=== PATIENT | male | born 1965 | race Caucasian/White ===

== ENCOUNTER 2020-07-07 10:37 | Inpatient (IN) | payer OTHER, BC ==
[~2020-07-07] VITALS: Ht 185.4 cm; Wt 170.5 kg
[2020-07-07] MEDS ORDERED: TRAZODONE HCL100 MG PO (10:43)
[2020-07-07] MEDS ORDERED: ELIQUIS5 MG PO (10:43)
[2020-07-07] MEDS ORDERED: LIPITOR40 MG PO (10:43)
[2020-07-07] MEDS ORDERED: HYDROCODON-ACE1 EA10 PO (12:26)
[2020-07-07 12:53] LABS: BASOPHILS 0.3 % (0-2); EOSINOPHILS 0.9 % (0-7); HEMATOCRIT 41.2 % (42.0-54.0); HEMOGLOBIN 13.1 g/dL (13.5-17.5); IMMATURE GRANULOCYTES 0.2 % (0-5); LYMPHOCYTES 8.9 % (15-50); MCH 26.4 pg (26.0-34.0); MCHC 31.8 g/dL (31.0-37.0); MCV 82.9 fL (80.0-100.0); MEAN PLATELET VOLUME 10.1 fL (7.4-10.4); MONOCYTES 5.2 % (2-11); NEUTROPHILS 84.5 % (40-80); PLATELET COUNT 298 10x3/uL (130-400); RBC 4.97 10x6/uL (4.20-6.10); RDW 14.6 % (11.5-14.5); WBC 10.1 10x3/uL (4.8-10.8)
[2020-07-07 13:16] LABS: CALCIUM 8.7 mg/dL (8.5-10.1); CARBON DIOXIDE 25.5 mmol/L (21.0-32.0); CREATININE - SERUM 1.3 mg/dL (0.6-1.3); POTASSIUM - SERUM 4.5 mmol/L (3.5-5.1)
--- NOTE | 2020-07-07 13:17 | NUR ---
EKG ORDERED BY DR. MORATAYA DUE TO PT C/O CHEST PRESSURE. PATIENT STATES PAIN MAY BE ASSOCIATED WITH INDIGESTION. EKG SHOWS NORMAL.
--- NOTE | 2020-07-07 13:27 | NUR ---
REGULAR DIET TRAY GIVEN.
[2020-07-07 13:32] LABS: ALBUMIN 3.1 g/dL (3.4-5.0); BILIRUBIN - TOTAL 0.38 mg/dL (0.2-1.3); PROTEIN - SERUM 6.7 g/dL (6.4-8.2)
[2020-07-07 13:45] LABS: APTT 30.9 SECONDS (22.8-39.4); INR 1.25 (0.85-1.17); PROTIME 14.6 SECONDS (11.6-15.0)
--- NOTE | 2020-07-07 17:30 | NUR ---
PATIENT C/O UPPER EPIGASTRIC PAIN "LIKE A GAS BUBBLE". PAIN IN ANKLE AT 2/10.
--- NOTE | 2020-07-07 18:00 | NUR ---
EPIGASTRIC PAIN RESOLVED. RESTING COMFORTABLE.
[2020-07-07 18:30] VITALS: BP 140/62
--- NOTE | 2020-07-07 18:30 | NUR ---
REPORT CALLED TO [facility].
[2020-07-07 20:41] VITALS: Ht 185.4 cm; Wt 170.5 kg
[2020-07-08 05:08] LABS: BASOPHILS 0.4 % (0-2); EOSINOPHILS 2.1 % (0-7); HEMATOCRIT 36.8 % (42.0-54.0); HEMOGLOBIN 11.6 g/dL (13.5-17.5); IMMATURE GRANULOCYTES 0.2 % (0-5); LYMPHOCYTE ABS# 0.78 10x3/uL (1.32-3.57); LYMPHOCYTES 16.7 % (15-50); MCH 26.2 pg (26.0-34.0); MCHC 31.5 g/dL (31.0-37.0); MCV 83.1 fL (80.0-100.0); MEAN PLATELET VOLUME 10.7 fL (7.4-10.4); MONOCYTES 9.2 % (2-11); NEUTROPHIL ABS# 3.32 10x3/uL (1.78-5.38); NEUTROPHILS 71.4 % (40-80); PLATELET COUNT 264 10x3/uL (130-400); RBC 4.43 10x6/uL (4.20-6.10); RDW 14.6 % (11.5-14.5)
[2020-07-08 05:09] LABS: WBC 4.7 10x3/uL (4.8-10.8)
--- NOTE | 2020-07-08 05:29 | NUR ---
Pt has been in bed resting and requested pain meds X2, which have been effective. Pt did not take Trazadone last night as the Morphine was effective for sleep as well very soon after admin. Continues resting in bed with CPAP. Unable to wear SCD's so Plaxy will be applied to Lt foot.
[2020-07-08 05:37] LABS: ALBUMIN 2.6 g/dL (3.4-5.0); ANION GAP 12.8 mmol/L (8-16); BILIRUBIN - TOTAL 1.15 mg/dL (0.2-1.3); CALCIUM 8.1 mg/dL (8.5-10.1); CARBON DIOXIDE 24.3 mmol/L (21.0-32.0); CREATININE - SERUM 1.3 mg/dL (0.6-1.3); PHOSPHOROUS 4.1 mg/dL (2.5-4.9); POTASSIUM - SERUM 4.1 mmol/L (3.5-5.1); PROTEIN - SERUM 5.9 g/dL (6.4-8.2)
[2020-07-08 08:07] VITALS: BP 122/70
--- NOTE | 2020-07-08 09:18 | NUR ---
DANIEL CALLED IN LAB REGARDING REDRAW FOR CMP AND VERBALIZED UNDERSTANDING.
[2020-07-08 09:46] LABS: INR 1.26 (0.85-1.17); PROTIME 14.6 SECONDS (11.6-15.0)
[2020-07-08 09:54] LABS: CALCIUM 7.9 mg/dL (8.5-10.1); CREATININE - SERUM 1.4 mg/dL (0.6-1.3)
[2020-07-08 10:00] LABS: ALBUMIN 2.6 g/dL (3.4-5.0); BILIRUBIN - TOTAL 1.15 mg/dL (0.2-1.3)
[2020-07-08 12:00] VITALS: BP 120/45
[2020-07-08 17:29] VITALS: BP 123/56
[2020-07-08 20:00] VITALS: BP 123/63
[2020-07-09] VITALS: BP 118/67
[2020-07-09 04:00] VITALS: BP 112/57
[2020-07-09 07:25] LABS: BASOPHILS 0.6 % (0-2); EOSINOPHILS 3.4 % (0-7); HEMATOCRIT 36.7 % (42.0-54.0); HEMOGLOBIN 11.5 g/dL (13.5-17.5); IMMATURE GRANULOCYTES 0.2 % (0-5); MCH 26.1 pg (26.0-34.0); MCHC 31.3 g/dL (31.0-37.0); MCV 83.2 fL (80.0-100.0); MEAN PLATELET VOLUME 10.9 fL (7.4-10.4); MONOCYTES 10.3 % (2-11); NEUTROPHILS 66.5 % (40-80); PLATELET COUNT 255 10x3/uL (130-400); RBC 4.41 10x6/uL (4.20-6.10); RDW 14.8 % (11.5-14.5); WBC 5.3 10x3/uL (4.8-10.8)
[2020-07-09 08:12] LABS: ALBUMIN 2.5 g/dL (3.4-5.0); ANION GAP 13.1 mmol/L (8-16); BILIRUBIN - TOTAL 1.34 mg/dL (0.2-1.3); CALCIUM 8.3 mg/dL (8.5-10.1); CARBON DIOXIDE 24.7 mmol/L (21.0-32.0); CREATININE - SERUM 1.2 mg/dL (0.6-1.3); MAGNESIUM - SERUM 2.2 mg/dL (1.8-2.4); PHOSPHOROUS 3.8 mg/dL (2.5-4.9); POTASSIUM - SERUM 3.8 mmol/L (3.5-5.1); PROTEIN - SERUM 5.9 g/dL (6.4-8.2)
--- NOTE | 2020-07-09 09:00 | NUR ---
DRESSING INTACT TO RLE WITH CAP REFILL <3 SEC. PLEXI PULSE INTACT TO LLE. IV TO LEFT A/C INFILTRATED AND RESTARTED WITH 22G TO LEFT FOREARM. ENCOURAGED USE OF INCENTIVE SPIROMOETRY AND DEMONSTRATES. ENCOURAGED TO USE CALL LIGHT FOR ASSSIT.
[2020-07-09 09:31] VITALS: BP 115/64
[2020-07-09 12:00] VITALS: BP 144/72
[2020-07-09 16:00] VITALS: BP 118/65
[2020-07-09 20:00] VITALS: BP 121/68
[2020-07-10] VITALS (9 sets, daily range): BP systolic 105–136; BP diastolic 49–81
[2020-07-10 06:07] LABS: BASOPHILS 0.8 % (0-2); EOSINOPHILS 3.4 % (0-7); HEMATOCRIT 36.3 % (42.0-54.0); HEMOGLOBIN 11.5 g/dL (13.5-17.5); IMMATURE GRANULOCYTES 0.2 % (0-5); LYMPHOCYTE ABS# 1.25 10x3/uL (1.32-3.57); MCH 26.3 pg (26.0-34.0); MCHC 31.7 g/dL (31.0-37.0); MCV 83.1 fL (80.0-100.0); MEAN PLATELET VOLUME 10.8 fL (7.4-10.4); MONOCYTES 9.6 % (2-11); NEUTROPHIL ABS# 4.14 10x3/uL (1.78-5.38); PLATELET COUNT 265 10x3/uL (130-400); RBC 4.37 10x6/uL (4.20-6.10); RDW 14.7 % (11.5-14.5); WBC 6.3 10x3/uL (4.8-10.8)
[2020-07-10 06:34] LABS: ALBUMIN 2.4 g/dL (3.4-5.0); ANION GAP 11.3 mmol/L (8-16); BILIRUBIN - TOTAL 0.6 mg/dL (0.2-1.3); CALCIUM 8.2 mg/dL (8.5-10.1); CARBON DIOXIDE 26.6 mmol/L (21.0-32.0); CREATININE - SERUM 1.2 mg/dL (0.6-1.3); MAGNESIUM - SERUM 2.1 mg/dL (1.8-2.4); PHOSPHOROUS 3.9 mg/dL (2.5-4.9); POTASSIUM - SERUM 3.9 mmol/L (3.5-5.1); PROTEIN - SERUM 5.9 g/dL (6.4-8.2)
[2020-07-10 11:33] LABS: BILIRUBIN NEGATIVE (NEGATIVE); KETONE NEGATIVE (NEGATIVE); NITRITE NEGATIVE (NEGATIVE)
[2020-07-10 11:34] LABS: BACTERIA FEW HPF (NONE SEEN); WHITE CELLS - URINE 2 HPF (0-1)
--- NOTE | 2020-07-10 15:40 | NUR ---
PATIENT PREMEDICATED FOR SURGERY AND LEFT WITH SURGICAL STAFF. STABLE AT TIME OF DEPARTURE. IMOBILIZER DRESSING INTACCT TO RLE.
--- NOTE | 2020-07-10 19:00 | NUR ---
REPORT GIVEN BY ABRIL STACK
--- NOTE | 2020-07-10 19:00 | NUR ---
PT WAS BROUGHT BACK FROM HIS ROOM FROM SURGERY. HE IS AWAKE AND ALERT WITH NO PAIN. DOROTHY WRAP TO LEFT FOOT WITH NO DRAINAGE NOTED. IV TO LEFT WRIST. PLEXI PULSE IN PLACE. PT CAN WIGGLE HIS TOES. I EXPLAINED THAT I WOULD BE BACK AGAIN TO SEE ABOUT HIM.
--- NOTE | 2020-07-10 20:00 | NUR ---
PT ASKED TO BE TAKEN OFF THE BEDPAN. HE HAD A LARGE BROWN VERY SOFT STOOL AND HE STATES THIS IS THE FOURTH OF THE DAY. HE WAS CLEANED UP WELL. HE STATES IF HE HAD ANY MEDICATION FOR HIS BOWELS THAT HE DID NOT WANT THEM. I SAID OK. HE IS STILL FEELING NO PAIN. I ASKED HIM TO LET ME KNOW WHEN HE STARTED HURTING SO HE DIDN'T GET BEHIND ON HIS PAIN.
--- NOTE | 2020-07-10 21:00 | NUR ---
PT IS STILL AWAKE AND ALERT. NO C/O AT THIS TIME. ASSESSMENT COMPLETED. IV IS INFUSING AT 50 ML/HR. IV ANTIBIOTEC STARTED. SKIN W/D.
--- NOTE | 2020-07-10 22:00 | NUR ---
ICE PACK APPLIED TO PT ANKLE.
[2020-07-11] VITALS (10 sets, daily range): BP systolic 94–124; BP diastolic 49–76
[2020-07-11 06:38] LABS: BASOPHILS 0.1 % (0-2); EOSINOPHILS 0 % (0-7); HEMATOCRIT 35.8 % (42.0-54.0); HEMOGLOBIN 11.4 g/dL (13.5-17.5); IMMATURE GRANULOCYTES 0.1 % (0-5); LYMPHOCYTE ABS# 0.66 10x3/uL (1.32-3.57); LYMPHOCYTES 7.1 % (15-50); MCH 26.4 pg (26.0-34.0); MCHC 31.8 g/dL (31.0-37.0); MCV 82.9 fL (80.0-100.0); MEAN PLATELET VOLUME 11.3 fL (7.4-10.4); MONOCYTES 5.3 % (2-11); NEUTROPHIL ABS# 8.12 10x3/uL (1.78-5.38); NEUTROPHILS 87.4 % (40-80); PLATELET COUNT 279 10x3/uL (130-400); RBC 4.32 10x6/uL (4.20-6.10); RDW 14.6 % (11.5-14.5)
[2020-07-11 06:43] LABS: WBC 9.3 10x3/uL (4.8-10.8)
--- NOTE | 2020-07-11 06:50 | OP ---
PATIENT NAME: MATIAS CHAIDEZ MEDICAL RECORD: [id number] :61 LOCATION:[id number] ADMISSION DATE:07/07/20 SURGEON: MATIAS LOMELI DO DATE OF OPERATION: 07/10/2020 PROCEDURE PERFORMED: Right ankle open reduction internal fixation. PREOPERATIVE DIAGNOSIS: Right ankle fracture. POSTOPERATIVE DIAGNOSIS: Right ankle fracture. INDICATIONS: Mr. Chaidez is a 54-year-old male who slipped at work while going down a ramp at a person's house and fractured his right ankle. He was brought to the ER. He was seen to have a right ankle fracture with lateral subluxation and need of surgery. This was on Friday, but is on and was held. He was put on Lovenox and he also had right knee pain, ended up getting an MRI showing a partial tear of his ACL lateral meniscal tear and tricompartmental arthritis, but the ankle course took precedence. He also had a posterior margin medial tibial plateau fracture with no displacement in the fibular head as well and the medial meniscus tear as well. I spoke to him about this and told me fix his ankle and then address the knee after that was healed. He was okay with that. He is aware of the risk of this procedure including infection, bleeding, damage to nerves or vessels, need for further surgery, continued pain, posttraumatic arthritis, malunion, nonunion, need for further surgery, blood clots, and even , failure of implants and he signed the consent. SURGEON: Matias Lomeli DO DESCRIPTION OF PROCEDURE: The patient was taken to the operative suite, laid in the supine position after given a block by anesthesia in preoperative area, given 3 grams Ancef preoperatively. The patient was sedated and LMA was placed. The right lower extremity was then prepped and draped in sterile fashion. Timeout was performed, everyone was in agreement of the correct side, site, patient, and procedure. I then began by making an incision over the lateral malleolus. I made careful dissection down to the fibula, made a reduction. I then put the plate on and it got lateral. Once I have had the plate on it was slightly anterior on the shaft. I then removed the shaft screws and made a reduction and put the plate a little posterior. I then put the screws back into the shaft 4 of them and tightened them down holding the fibula very well. His ankle medial clear space was still quite widened and the talus was subluxed more laterally. I then attempted a reduction and it did not reduce very well, so I opened up the medial aspect of the ankle at the small incision and took a freer and cleared out any medial clear space, maybe had the deltoid ligament flipped up in and cleared it out and reclamped and reduced the talus under the tibia as best I could. I then put two ZipTights across through the plate in the lateral side and cinched them down and then removed the clamp, stressed the ankle. He did have some slight medial clear space widening, but there is a talus lined up on to tibia and was not subluxed laterally. I then irrigated and Nicholas Beavers, certified surgical temporary administrative assistant as well as Chrissy Land, certified surgical nurse, closed the wounds in the medial side with 2-0 Vicryl in interrupted fashion and the lateral side with 2-0 Vicryl in interrupted fashion. Placed a ZipLine on the outside on the lateral side. Steri-Strips on the medial side. He was then dressed with Adaptic, 4 x 4s, ABDs on the heel and on the lateral ankle and placed cast padding and a 4 x 30 splint posteriorly. He was then secured with an Praful wrap. He was then awakened and taken to recovery in stable OPERATIVE REPORT [id number] MATIAS CHAIDEZ condition. Blood loss approximately 100 mL. COMPLICATIONS: None. TRANSINT:[id number] Voice Confirmation ID: [id number] DOCUMENT ID: [id number] MATIAS LOMELI DO at 0650 CC: [id number] DICTATION DATE: 07/10/20 183 DRILL PRESS SET UP OPERATOR: 07/11/20 0247 ADM IN [facility] [address] [place] [address]
[2020-07-11 06:55] LABS: ALBUMIN 2.4 g/dL (3.4-5.0); BILIRUBIN - TOTAL 0.38 mg/dL (0.2-1.3); CALCIUM 8.3 mg/dL (8.5-10.1); CARBON DIOXIDE 23.9 mmol/L (21.0-32.0); CREATININE - SERUM 1.2 mg/dL (0.6-1.3); MAGNESIUM - SERUM 2.2 mg/dL (1.8-2.4); PHOSPHOROUS 3.9 mg/dL (2.5-4.9); PROTEIN - SERUM 6.2 g/dL (6.4-8.2)
[2020-07-11 06:56] LABS: ANION GAP 14.6 mmol/L (8-16); POTASSIUM - SERUM 4.5 mmol/L (3.5-5.1)
[2020-07-11 11:11] LABS: HEPATITIS C ANTIBODY <0.1 S/CO RAT (0.0-0.9)
[2020-07-11] MEDS ORDERED: VISTARIL50 MG PO (13:23)
[2020-07-11] MEDS ORDERED: PERCOCET 10-321 EAC1 PO (13:23)
[2020-07-12] VITALS: BP 115/65
[2020-07-12 04:00] VITALS: BP 107/68
--- NOTE | 2020-07-12 06:03 | NUR ---
ASSUMED CARE OF PT AFTER REPORT/ROUNDS LAST EVENING. PT REMAINS A&OX4. PT HAS RESTED WELL WITH ONLY ONE C/O PAIN WITH PRN PAIN MED EFFECTIVE. RLE CMS REMAINS INTACT. CONTINUING TO APPLY ICE WHILE AWAKE. PT IN BED RESTING AT THIS TIME.
[2020-07-12 06:42] LABS: BASOPHILS 0.3 % (0-2); EOSINOPHILS 2.1 % (0-7); HEMATOCRIT 34.5 % (42.0-54.0); HEMOGLOBIN 10.6 g/dL (13.5-17.5); IMMATURE GRANULOCYTES 0.3 % (0-5); LYMPHOCYTE ABS# 1.34 10x3/uL (1.32-3.57); LYMPHOCYTES 18.4 % (15-50); MCH 25.9 pg (26.0-34.0); MCHC 30.7 g/dL (31.0-37.0); MCV 84.4 fL (80.0-100.0); MEAN PLATELET VOLUME 11.1 fL (7.4-10.4); NEUTROPHIL ABS# 5.18 10x3/uL (1.78-5.38); NEUTROPHILS 70.9 % (40-80); PLATELET COUNT 264 10x3/uL (130-400); RBC 4.09 10x6/uL (4.20-6.10); RDW 14.9 % (11.5-14.5); WBC 7.3 10x3/uL (4.8-10.8)
[2020-07-12 07:20] LABS: ALBUMIN 2.3 g/dL (3.4-5.0); BILIRUBIN - TOTAL 0.37 mg/dL (0.2-1.3); CALCIUM 7.9 mg/dL (8.5-10.1); CARBON DIOXIDE 24.8 mmol/L (21.0-32.0); CREATININE - SERUM 1.3 mg/dL (0.6-1.3); MAGNESIUM - SERUM 2.1 mg/dL (1.8-2.4); PHOSPHOROUS 3.8 mg/dL (2.5-4.9); POTASSIUM - SERUM 3.8 mmol/L (3.5-5.1)
[2020-07-12 08:00] VITALS: BP 131/71
--- NOTE | 2020-07-12 08:30 | NUR ---
PATIENT IN BED WITH IV INTACT. NO COMPLAINTS OR SIGNS OF DISTRESS. RLE FLOATING ON PILLOW WITH DRESSING CLEAN, DRY, AND INTACT. CALL LKIGHT WITHIN REACH.
--- NOTE | 2020-07-12 17:18 | MORECARE ---
CASE MANAGEMENT DISCHARGE SUMMARY PATIENT: KIRSTIE GUTIERREZ UNIT: [id number] ADM DATE: 07/07/20 AGE: 54 : 63 SEX: M ROOM/BED: D.2210 AUTHOR: ALEA HERRERA PHYSICIAN: REFERRING PHYSICIAN: TITUS OH MD DATE OF SERVICE: 07/12/20 Case Management Discharge Planning Summary DCP REVIEW SUMMARY ANTICIPATED D/C DATE: EXPECTED LOS : CASE STATUS: DCP Initiated INITIAL REVIEW: 07/07/2020 INITIAL REVIEWER: Lashawn Ojead FINAL DISCHARGE DISPOSITION: : FINAL REVIEWER: FINAL REVIEW DATE: DCP Focus Questions & Answers QUESTION: ANSWER : PATIENT: KIRSTIE GUTIERREZ ENCOUNTER: [id number] MEDICAL RECORD#: [id number] ADMISSION DATE: 07/07/2020 DISCHARGE DATE: ATTENDING MD: TITUS BASSETT : AGE: 54 MARITAL STATUS: D DC PLAN ID: [id number] FACILITY: [facility] PRINTED ON: 07/12/20 17:18 CT All edits/amendments must be made on the electronic document DICTATION DATE: 07/12/201717 PRODUCT TECHNOLOGY SCIENTIST: DM 07/12/201717 RPT#: [id number] DC DATE: STATUS: ADM IN [place] [address] [place] [address] END OF REPORT
--- NOTE | 2020-07-12 17:41 | MORECARE ---
CASE MANAGEMENT DISCHARGE SUMMARY PATIENT: KIRSTIE GUTIERREZ UNIT: [id number] ADM DATE: 07/07/20 AGE: 54 : 63 SEX: M ROOM/BED: D.2210 AUTHOR: ALEA HERRERA PHYSICIAN: REFERRING PHYSICIAN: TITUS OH MD DATE OF SERVICE: 07/12/20 Case Management Discharge Planning Summary COMMENTS ENTERED DATE: 07/12/20 17:13 CT COMMENT TYPE: Discharge Planning REVIEWER: Lashawn Ojeda CM met with patient to discuss discharge planning needs. 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 He planned on going home with services but after OT evaluated him and said that they thought that the safest discharge plan is rehab for transfer and strength training. I spoke with Yamile the patient's [employer]'s comp fire claims adjuster and she stated that they would approve rehab. I gave Maureen with inpatient rehab [facility]'s number for her to get auth. When the patient is able to go home he will need a knee walker, shower chair, and BSC. I have already started the process to get these items from [employer]. [facility] has also approved these items. The patient states that he has a walker at home and there is a ramp at his home. Dr Nicholas Osborne is his PCP and he uses [facility] the [address] for his medications. His 15 year old daughter lives with him. His sister will be his cdl dedicated truck driver home when he is ready. The plan will be to dc home at inpatient rehab today and then home. Fernie who is the CM for [employer] called and I explained all the above to her, I will fax clinicals to her also . She knows about the DME that was ordered with [employer]. [employer] CLAIM # [id number] [facility] [phone] fax# [phone] FERNIE ( PAID SEARCH ANALYST FOR [employer] ) FAX # [phone] DCP REVIEW SUMMARY ANTICIPATED D/C DATE: EXPECTED LOS : CASE STATUS: DCP Initiated INITIAL REVIEW: 07/07/2020 INITIAL REVIEWER: Lashawn Ojeda FINAL DISCHARGE DISPOSITION: : FINAL REVIEWER: FINAL REVIEW DATE: MNP Focus Questions & Answers QUESTION: ANSWER : PATIENT: KIRSTIE GUTIERREZ ENCOUNTER: [id number] MEDICAL RECORD#: [id number] ADMISSION DATE: 07/07/2020 DISCHARGE DATE: ATTENDING MD: TITUS BASSETT : AGE: 54 MARITAL STATUS: D DC PLAN ID: [id number] FACILITY: [facility] PRINTED ON: 07/12/20 17:41 CT All edits/amendments must be made on the electronic document DICTATION DATE: 07/12/201739 FRICTION PAINT MACHINE TENDER: TOMAS 07/12/201739 RPT#: [id number] DC DATE: STATUS: ADM IN [facility] [address] [place] [address] END OF REPORT
--- NOTE | 2020-07-12 18:50 | NUR ---
PATIENT IN BED WITH IV INTACT. NO COMPLAINTS OR SIGNS OF DISTRESS. PLEXI PULSES ON. CALL LIGHT WITHINR EACH. WAITING FOR A BED IN REHAB.
--- NOTE | 2020-07-12 20:39 | NUR ---
REHAB PRESCREEN ORDER RECEIVED AT 1638. WE HAVE AUTHORIZATION FROM [facility] TO BRING THE PATIENT. WE WORKED TO COMPLETE THE ELECTRONIC SCREEN, AND HAVE BEEN WAITING OVER AN HOUR FOR FINAL APPROVAL. WE HAVE DONE WHAT WE CAN AND CALL THE FLOOR AND COMMUNITY SERVICE MANAGER TO STATE WE WOULD HAVE TO BRING IN AM. WE APOLOGIZE FOR THE DELAY. SHARMIN BECKER RN CLINICAL [facility], INPATIENT REHAB.
--- NOTE | 2020-07-12 22:14 | NUR ---
REPAIR SERVICER ASSISTED PT TO INPT REHAB, VIA BED. REMOVED PIV FROM RIGHT FOREARM, CATH INTACT, NO REDNESS OR SWELLING.
--- NOTE | 2020-07-12 22:19 | MORECARE ---
CASE MANAGEMENT DISCHARGE SUMMARY PATIENT: KIRSTIE GUTIERREZ UNIT: [id number] ADM DATE: 07/07/20 AGE: 54 : 61 SEX: M ROOM/BED: D.2210 AUTHOR: ALEA HERRERA PHYSICIAN: REFERRING PHYSICIAN: TITUS OH MD DATE OF SERVICE: 07/12/20 Case Management Discharge Planning Summary COMMENTS ENTERED DATE: 07/12/20 17:13 CT COMMENT TYPE: Discharge Planning REVIEWER: Lashawn Ojeda CM met with patient to discuss discharge planning needs. 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 He planned on going home with services but after OT evaluated him and said that they thought that the safest discharge plan is rehab for transfer and strength training. I spoke with Yamile the patient's [employer] comp crop insurance claims adjuster and she stated that they would approve rehab. I gave Maureen with inpatient rehab [facility]'s number for her to get auth. When the patient is able to go home he will need a knee walker, shower chair, and BSC. I have already started the process to get these items from [employer]. [facility] has also approved these items. The patient states that he has a walker at home and there is a ramp at his home. Dr Nicholas Osborne is his PCP and he uses [facility] the [place] for his medications. His 15 year old daughter lives with him. His sister will be his line haul truck driver home when he is ready. The plan will be to dc home at inpatient rehab today and then home. Fernie who is the CM for [employer] called and I explained all the above to her, I will fax clinicals to her also . She knows about the DME that was ordered with [employer]. [employer] CLAIM # [id number] [facility] [phone] fax# [phone] FERNIE ( PHYSICIAN'S AIDE FOR [employer] ) FAX # [phone] DCP REVIEW SUMMARY ANTICIPATED D/C DATE: EXPECTED LOS : CASE STATUS: DCP Initiated INITIAL REVIEW: 07/07/2020 INITIAL REVIEWER: Lashawn Ojeda FINAL DISCHARGE DISPOSITION: : FINAL REVIEWER: FINAL REVIEW DATE: NVP Focus Questions & Answers QUESTION: ANSWER : PATIENT: KIRSTIE GUTIERREZ ENCOUNTER: [id number] MEDICAL RECORD#: [id number] ADMISSION DATE: 07/07/2020 DISCHARGE DATE: 07/12/2020 ATTENDING MD: TITUS BASSETT : AGE: 54 MARITAL STATUS: D DC PLAN ID: [id number] FACILITY: [facility] PRINTED ON: 07/12/20 22:18 CT All edits/amendments must be made on the electronic document DICTATION DATE: 07/12/202217 PLASMA SPECIALIST: TOMAS 07/12/202217 RPT#: [id number] DC DATE:07/12/20 STATUS: DIS IN [facility] [address] [place] [address] END OF REPORT
== END 2020-07-12 22:15 | DRG 493 ==
LOC: D.ER 10:37 → D.MS 13:33
PROVIDERS: Family Medicine; Orthopaedic Surgery; Student in an Organized Health Care Education/Training Program; ADMIT Emergency Medicine; ATTEND Emergency Medicine
PROC: 0QSJ04Z Reposition Right Fibula with Internal Fixation Device, Open Approach (ICD-10-PCS; principal; 2020-07-10 12:30)
DX: S82.61XA Displaced fracture of lateral malleolus of right fibula, initial encounter for closed fracture (principal); S82.141A Displaced bicondylar fracture of right tibia, initial encounter for closed fracture; W19.XXXA Unspecified fall, initial encounter; R74.01 Elevation of levels of liver transaminase levels; J45.909 Unspecified asthma, uncomplicated; E78.5 Hyperlipidemia, unspecified; Z86.711 Personal history of pulmonary embolism; Z79.01 Long term (current) use of anticoagulants; S83.271A Complex tear of lateral meniscus, current injury, right knee, initial encounter; S83.511A Sprain of anterior cruciate ligament of right knee, initial encounter; S83.411A Sprain of medial collateral ligament of right knee, initial encounter; M19.09 Primary osteoarthritis, other specified site

== ENCOUNTER 2020-07-12 22:14 | Inpatient (IN) | payer BC ==
[~2020-07-12] VITALS: Ht 185.4 cm; Wt 171.5 kg
[~2020-07-12 22:14] MED LIST: ELIQUIS5 MG PO; HYDROCODON-ACE1 EA10 PO; LIPITOR40 MG PO; PERCOCET 10-321 EAC1 PO; TRAZODONE HCL100 MG PO; VISTARIL50 MG PO
[2020-07-12 22:45] VITALS: BP 100/65; BMI 49.9
--- NOTE | 2020-07-12 23:30 | NUR ---
PT IN BED, NO IMMEDIATE NEEDS NOTED, FLUIDS/CL WITHIN REACH, PRECAUTIONS IN PLACE
[2020-07-13 07:41] LABS: ALBUMIN 2.4 g/dL (3.4-5.0); ANION GAP 11.9 mmol/L (8-16); BILIRUBIN - TOTAL 0.4 mg/dL (0.2-1.3); CALCIUM 8.2 mg/dL (8.5-10.1); CARBON DIOXIDE 27.4 mmol/L (21.0-32.0); CREATININE - SERUM 1.3 mg/dL (0.6-1.3); POTASSIUM - SERUM 4.3 mmol/L (3.5-5.1); PROTEIN - SERUM 5.7 g/dL (6.4-8.2)
[2020-07-13 08:14] VITALS: BP 125/54
--- NOTE | 2020-07-13 09:15 | NUR ---
HE IS WORKING WITH [employer]. HE HAS A DRESSING INTACT TO HIS RIGHT ANKLE. HE IS USING THE WHEELCHAIR TO GO TO THE BATHROOM. THE CALL LIGHT IS WITHIN REACH.
[2020-07-13 13:13] VITALS: Ht 185.4 cm; Wt 171.5 kg
[2020-07-13 20:36] VITALS: BP 105/60
[2020-07-14 07:09] LABS: BASOPHILS 0.5 % (0-2); EOSINOPHILS 3.1 % (0-7); HEMATOCRIT 35.5 % (42.0-54.0); IMMATURE GRANULOCYTES 0.2 % (0-5); LYMPHOCYTE ABS# 1.18 10x3/uL (1.32-3.57); LYMPHOCYTES 19.1 % (15-50); MCH 26.1 pg (26.0-34.0); MCV 84.3 fL (80.0-100.0); MEAN PLATELET VOLUME 10.6 fL (7.4-10.4); MONOCYTES 8.4 % (2-11); NEUTROPHIL ABS# 4.25 10x3/uL (1.78-5.38); NEUTROPHILS 68.7 % (40-80); PLATELET COUNT 259 10x3/uL (130-400); RBC 4.21 10x6/uL (4.20-6.10); WBC 6.2 10x3/uL (4.8-10.8)
[2020-07-14 07:23] LABS: CALCIUM 8.5 mg/dL (8.5-10.1); CARBON DIOXIDE 28.2 mmol/L (21.0-32.0); CREATININE - SERUM 1.3 mg/dL (0.6-1.3); POTASSIUM - SERUM 4.2 mmol/L (3.5-5.1)
[2020-07-14 08:11] VITALS: BP 114/65
--- NOTE | 2020-07-14 17:27 | NUR ---
PATIENT HELPED TO BATHROOM. STAND BUY ASST FROM WHEELCHAIR ONTO TOILET
--- NOTE | 2020-07-14 20:00 | NUR ---
PATIENT RECEIVED SITTING UP IN BED. ASSESSMENT & VITAL SIGNS DONE. DOROTHY BANDAGE ON LEFT ANKLE & FOOT C/D/I. BED LOW. CALL LIGHT & BEDSIDE TABLE WITHIN REACH. WILL CONTINUE TO MONITOR.
[2020-07-14 21:20] VITALS: BP 105/68
--- NOTE | 2020-07-15 02:13 | NUR ---
PATIENT EYES CLOSED. RESPIRATIONS 18 & EVEN. URINAL EMPTIED OF 1100 CC OF CLEAR YELLOW COLOR URINE. BED LOW. ALARM ON. CALL LIGHT WITHIN REACH. WILL CONTINUE TO [facility].
--- NOTE | 2020-07-15 03:29 | NUR ---
PATIENT USED CALL LIGHT FOR ASSIST. PATIENT REQUEST FOR VISTIRIL & PAIN MEDICATION FOR RIGHT KNEE, ANKLE, LEG. PAIN LEVEL 8. BED LOW. ALARM ON. CALL LIGHT WITHIN REACH. WILL CONTINUE TO MONITOR.
[2020-07-15 08:00] VITALS: BP 132/85
--- NOTE | 2020-07-15 08:00 | NUR ---
PT RESTING IN BED WITH EYES OPEN CALL LIGHT IN REACH NO PROBLEMS WILL MONITER
--- NOTE | 2020-07-15 18:13 | NUR ---
PT RESTING IN BED WITH EYES OPEN CALL LIGHT IN REACH WILL MONITER
[2020-07-15 19:00] VITALS: BP 111/52
--- NOTE | 2020-07-15 20:05 | NUR ---
PATIENT RECEIVED SITTING UP IN BED. ASSESSMENT & VITAL SIGNS DONE. NO C/O PAIN OR DISTRESS. BED LOW. ALARM ON. CALL LIGHT WITHIN REACH. WILL CONTINUE TO MONITOR.
--- NOTE | 2020-07-16 02:42 | NUR ---
I have reviewed this patient and I concur with the Shift Assessment completed by the Licensed Practical Nurse today this shift.
--- NOTE | 2020-07-16 04:06 | NUR ---
PATIENT WHILE ON ROUNDS WANTED HIS VISTIRIL & OXYCODONE. PAIN LEVEL 8 TO RIGHT ANKLE & LEG. MEDICATIONS GIVEN. URINAL EMPTIED OF 500 CC OF CLEAR YELLOW URINE. BED LOW. CALL LIGHT & BEDSIDE TABLE WITHIN REACH. WILL CONTINUE TO MONITOR.
--- NOTE | 2020-07-16 07:38 | NUR ---
PT RESTING IN BED WITH EYES OPEN CALL LIGHT IN REACH WILL MONITER
[2020-07-16 08:00] VITALS: BP 126/67
--- NOTE | 2020-07-16 17:45 | NUR ---
PT RESTING IN BED WITH EYES OPEN CALL LIGHT IN REACH NO PROBLEMS WILL MONITER
--- NOTE | 2020-07-16 18:57 | NUR ---
BEDSIDE REPORT COMPLETE. RECEIVED PT SITTING UP IN BED. ALERT AND ORIENTED X4. DENIES ANY NEEDS OR PAIN. RIGHT ANKLE SPLINT CAST WITH DOROTHY WRAP. NOTED DOROTHY WRAP COMING OFF AND SOILED. PT STATES "ON TOP OF HUGHES AREA, FEELS LIKE SOMETHING RUBBING SKIN CAUSING SOME DISCOMFORT" REMOVED DOROTHY WRAP FOUND CASTING TO BE LOOSE AT TOP, PULLED BACK TO ENSURE DRESSING WAS NOT CAUSING SORE ON HUGHES. DID NOT FIND ANY SKIN BREAKDOWN. INCISION TO LATERAL SIDE ANKLE NOTED. PULLED CASTING IN PLACE SECURED WITH KERLIX, PLACED SPLINT ON AND SECURED WITH NEW DOROTHY WRAPS X2. PT REPORTS NO DISCOMFORT OR RUBBING FEELING ANY LONGER. CALL LIGHT AND WATER WITHIN REACH. BED/CHAIR ALARM WAIVER SIGNED. CPOC
[2020-07-16 19:00] VITALS: BP 109/65
--- NOTE | 2020-07-16 23:59 | NUR ---
PT LYING IN BED SUPINE EYES CLOSED RESTING. HOB ELEVATED. RR EVEN AND UNLABORED. CPAP IN USE. CALL LIGHT WITHIN REACH
--- NOTE | 2020-07-17 05:14 | NUR ---
PT LYING IN BED SUPINE EYES CLOSED RESTING. RR EVEN AND UNLABORED. CPAP IN USE. NO ACUTE CHANGES IN CONDITION NOTED THIS SHIFT. CALL LIGHT AND WATER WITHIN REACH.
[2020-07-17 07:57] VITALS: BP 113/71
[2020-07-17 08:18] LABS: BASOPHILS 0.9 % (0-2); EOSINOPHILS 4.3 % (0-7); HEMATOCRIT 37.4 % (42.0-54.0); HEMOGLOBIN 11.6 g/dL (13.5-17.5); IMMATURE GRANULOCYTES 0.2 % (0-5); LYMPHOCYTE ABS# 1.31 10x3/uL (1.32-3.57); LYMPHOCYTES 24.4 % (15-50); MCH 26.4 pg (26.0-34.0); MCV 85.2 fL (80.0-100.0); MEAN PLATELET VOLUME 10.7 fL (7.4-10.4); MONOCYTES 6.7 % (2-11); NEUTROPHILS 63.5 % (40-80); RBC 4.39 10x6/uL (4.20-6.10); RDW 14.8 % (11.5-14.5); WBC 5.4 10x3/uL (4.8-10.8)
[2020-07-17 08:21] LABS: PLATELET COUNT 347 10x3/uL (130-400)
[2020-07-17 08:31] LABS: ANION GAP 11.1 mmol/L (8-16); CALCIUM 8.7 mg/dL (8.5-10.1); CARBON DIOXIDE 29.3 mmol/L (21.0-32.0); CREATININE - SERUM 1.5 mg/dL (0.6-1.3); POTASSIUM - SERUM 4.4 mmol/L (3.5-5.1)
--- NOTE | 2020-07-17 14:29 | NUR ---
HAS BEEN UP WORKING WITH THERAPY. IS NWB TO RLE. IT IS IN SOFT CAST WITH DOROTHY WRAP AROUND IT. CAP REFILL <3 SECONDS.DENIES INCREASED NUMBNESS TO RLE. DENIES INCREASED PAIN.
--- NOTE | 2020-07-17 15:24 | NUR ---
PATIENT ADMITTED TO REHAB FROM ACUTE FLOOR. DR. ZAHEER JAMISON IS HIS PCP. RECORDS HAVE BEEN [facility]ED TO [facility], , CLAIM # [id number] WITH A TENATIVE DC DATE OF 07/18/20. ORDER FAXED TO [facility] FOR A WHEELCHAIR.
--- NOTE | 2020-07-17 19:42 | NUR ---
AWAKE AND ALERT. RESTING IN BED WITH RESPIRATIONS UNLABORED. NO DISTRESS NOTED. CALL LIGHT IN REACH. CAST IN PLACE TO RIGHT ANKLE.
[2020-07-17 19:58] VITALS: BP 96/54
--- NOTE | 2020-07-18 05:29 | NUR ---
QUIET HOURS. NO ACUTE CHANGES IN CONDITION THIS SHIFT. RESTING IN BED WITH NO DISTRESS NOTED.
[2020-07-18 07:34] VITALS: BP 103/65
--- NOTE | 2020-07-18 08:00 | NUR ---
ASSMT COMPLETED.CL IN REACH
--- NOTE | 2020-07-18 10:00 | NUR ---
PATIENT DISCHARGING HOME TODAY WITH FAMILY. [facility] WILL PROVIDE THEREAPY AT HOME. [facility] DELIVERED A WHEELCHAIR TO PATIENT. DR. ZAHEER JAMISON 07/20/20 @ 9:30, DR. LOMELI 07/19/20 @ 10:00. CRISTELA SIGNED, IMM SERVED AND EXPLAINED, ONE GIVEN TO PATIENT AND ONE FILED IN CHART. DISCHARGE INSTRUCTIONS FAXED TO PCP, HOME HEALTH, TO WORK [facility] AND REVIEWED WITH PATIENT.
[2020-07-18] MEDS ORDERED: PERCOCET 10-321 EAC1 PO (11:42)
--- NOTE | 2020-07-18 11:43 | RHP ---
PATIENT: KIRSTIE GUTIERREZ MEDICAL RECORD: [id number] ACCOUNT: [id number] LOCATION:[id number] : 61 ADMISSION DATE: 07/12/20 REHABILITATION HISTORY AND PHYSICAL EXAMINATION POST ADMISSION PHYSICIAN EXAMINATION ADMITTING DIAGNOSIS: Right ankle fracture. HISTORY OF PRESENT ILLNESS: The patient presented to the ED after complaints of right ankle pain following a fall. He was walking down a ramp at work. He had immediate numbness to his right lower extremity from the knee down and to the foot. The foot was pointed outwards. The patient was seen and evaluated. Ortho came in and noted he had a subluxation. The patient is on Eliquis and this had to be held prior to surgery. He had an ORIF on 07/10/2020. He will be strict nonweightbearing to his right lower extremity during his stay here. The patient prior to surgery, he was requiring pain medicines including morphine prior to this pain. He is now on Percocet at this time. He is on prophylactic antibiotics. He is still suffering from some postop anemia that is not low enough yet to transfuse, but we will watch this closely. He has had some electrolyte abnormalities during his stay. The patient has had physical therapy started upstairs. He is mod assist x2 for sit to stand and bed to chair. He is moderate assist with bed mobility at this time. He will definitely need inpatient rehab to get back to his prior level of functioning. He is unsafe to return home at this time in his current status and current state of health. He has got gait disturbance. He has got impaired mobility. He is a high fall risk, self-care deficits. These are barriers to his discharge. So, we will work on doing this prior to getting him home. COMORBIDITIES: In this patient include a risk for falls, ankle fracture. PAST MEDICAL HISTORY: Significant for diverticulitis. He has got a history of asthma. He has a history of PE in the past, hyperlipidemia. PAST SURGICAL HISTORY: Includes hip surgery, gastric bypass, cholecystectomy and appendectomy and now ankle surgery. ALLERGIES: PENICILLIN, AMPICILLIN, DOXYCYCLINE. CURRENT MEDICATIONS: Include Lipitor 40 mg daily, Eliquis 5 mg b.i.d., trazodone 100 mg at bedtime, Percocet 10/325 one tab every 6 hours, Vistaril 50 mg every 6 hours p.r.n. HABITS: No alcohol or tobacco use. FAMILY HISTORY: Noncontributory. SOCIAL HISTORY: The patient hopes to return back home and get back to his prior level of functioning. REVIEW OF SYSTEMS: GENERAL: He does complain of a little weakness, fatigue. HEENT: Denies cold, cough or congestion. CARDIOVASCULAR: Denies chest pain. OBJECTIVE: HISTORY AND PHYSICAL [id number] KIRSTIE GUTIERREZ VITAL SIGNS: Stable, afebrile. GENERAL: A morbidly obese gentleman in no acute distress upon exam. HEENT: Normocephalic and atraumatic. Mucosa moist. NECK: Supple. No lymphadenopathy. LUNGS: Clear in the upper platt. HEART: Regular rate and rhythm. No murmurs, rubs or gallops. ABDOMEN: Soft, obese, nontender and nondistended. EXTREMITIES: No clubbing, cyanosis or edema. Postoperative area looks pretty good. NEUROLOGIC: Does have some weakness. LABORATORY DATA: His sodium is 141, potassium is 4.3, BUN and creatinine of 13 and 1.3 and blood sugar is noted to be 99. He does have elevation of some of his LFTs at this time. ASSESSMENT: This is a 54-year-old gentleman admitted to the rehab with a working diagnosis of right ankle fracture and nonweightbearing status at this time. The patient has potential to make improvement. We instituted the following multidisciplinary therapies including, not limited to physical, occupational, respiratory, speech, nutritional services, prosthetics and orthotics. Given his complex medical condition and risks for more complications, rehabilitation services cannot be provided at a low level of care such as jail facility. PLAN: 1. Admit to [facility] for inpatient therapy to include the following disciplines; A. Physical therapy to improve gait, all transfer skills and bed mobility to a modified independent level. B. Occupational therapy to improve activities of daily living. C. Case management to help with discharge planning and placement options. D. Nutrition to assist with nutritional needs. E. Rehabilitation nursing to assist in monitoring the patient's underlying medical condition and to assist with any type of bowel or bladder management. 2. The patient's current medications and Medicare will be continued. 3. The patient will be placed on standard fall precautions. 4. The patient's estimated length of stay is approximately 7-10 days. 5. Discuss this patient during care team staff meeting this week. TRANSINT:[id number] Voice Confirmation ID: [id number] DOCUMENT ID: [id number] SUKHI notes whether there has been none or any medical/functional change since admission: - SUKHI attests patient continues to be appropriate for IRF: - HISTORY AND PHYSICAL [id number] KIRSTIE GUTIERREZ,JENNA HSU MD at 1143 CC: [id number] DICTATION DATE: 07/13/20852 FLAT SHEET MAKER: 07/13/20 0914 ADM IN [place] [id number] [place] [id number]
--- NOTE | 2020-07-18 12:00 | NUR ---
REVIEWED DISCHARGE AND MEDS AND APPOINTMENT.
--- NOTE | 2020-07-18 14:45 | NUR ---
DISCHARGED TO HOME WITH ,
== END 2020-07-18 18:00 | disposition home health service (06) | DRG 561 ==
LOC: D.REHAB 22:14
PROVIDERS: ADMIT Emergency Medicine; ATTEND Emergency Medicine
DX: S82.891D Other fracture of right lower leg, subsequent encounter for closed fracture with routine healing (principal); W19.XXXD Unspecified fall, subsequent encounter; J45.909 Unspecified asthma, uncomplicated; E78.5 Hyperlipidemia, unspecified; Z86.711 Personal history of pulmonary embolism

== ENCOUNTER → 2020-07-19 13:23 | Outpatient (CLI) | payer BC ==
[2020-07-13 13:13] VITALS: BMI 49.8
== END | disposition home or self-care (01) ==
LOC: D.US 13:23
PROVIDERS: ATTEND Clinical Nurse Specialist Family Health
DX: R22.41 Localized swelling, mass and lump, right lower limb (principal)